=== PATIENT | male | born 1965 | race Caucasian/White ===

== ENCOUNTER 2021-09-23 17:00 | Inpatient (IN) | payer MEDICARE, MEDICAID ==
[~2021-09-23] VITALS: Ht 177.8 cm; Wt 81.2 kg
[2021-09-23] MEDS ORDERED: KETOROLAC 30MG/ML VIAL IV STA (17:37)
[2021-09-23] MEDS ORDERED: ASPIRIN 81MG TABLET PO ONE (17:45)
[2021-09-23] MEDS ORDERED: SODIUM CHLORIDE 0.9% 1,000 ML IV ONE (17:45)
[2021-09-23 17:50] LABS: BASOPHILS % 0.3 % (0.0-2.0); EOSINOPHILS % 1.7 % (0.0-5.0); HEMATOCRIT. 46.5 % (42.0-52.0); HEMOGLOBIN. 16.1 g/dL (14.0-18.0); LYMPHOCYTES % 21.5 % (20.0-50.0); MEAN CORPUSCULAR HEMOGLOBIN 29.8 pg (28.0-32.0); MEAN CORPUSCULAR VOLUME 86.1 fL (80.0-94.0); MEAN PLATELET VOLUME 7.6 fl (7.4-10.4); MONOCYTES % 14.4 % (2.0-8.0); NEUTROPHILS % 62.1 % (40.0-76.0); PLATELET 163 x1000/uL (130-400); RED BLOOD CELL COUNT 5.41 mill/uL (4.7-6.1); RED CELL DISTRIBUTION WIDTH 13.9 % (11.6-14.6)
[2021-09-23 17:55] LABS: CHLORIDE 102 mEq/L (98-107)
[2021-09-23 18:17] LABS: ETHANOL BLOOD < 10 mg/dL
[2021-09-23 18:18] LABS: CARBAMAZEPINE < 0.5 ug/mL (4-12); PHENOBARBITAL < 2.1 ug/mL (15.0-40.0)
[2021-09-23] MEDS ORDERED: DOCUSATE SODIUM 100MG CAPSULE PO PRN (19:00)
[2021-09-23] MEDS ORDERED: MAGNESIUM/ALUMINUM HYDROXIDE/SIMETHICONE 30ML UDC PO PRN (19:00)
[2021-09-23] MEDS ORDERED: HALOPERIDOL LACTATE 5MG/ML VIAL IM PRN (19:00)
[2021-09-23] MEDS ORDERED: NITROGLYCERIN 0.4MG TABLET SL SL PRN (19:00)
[2021-09-23] MEDS ORDERED: ACETAMINOPHEN 325MG TABLET PO PRN ×2 (19:00)
[2021-09-23] MEDS ORDERED: IPRATROPIUM/ALBUTEROL 0.5-3(2.5)MG/3ML NEB NEB PRN (19:00)
[2021-09-23] MEDS ORDERED: CLONIDINE 0.1MG TABLET PO PRN (19:00)
[2021-09-23] MEDS ORDERED: ONDANSETRON HCL 4MG/2ML INJ IV PRN (19:00)
[2021-09-23] MEDS ORDERED: KETOROLAC 15MG/ML VIAL IV PRN (19:00)
[2021-09-23] MEDS ORDERED: GUAIFENESIN 200MG/10ML SUGAR FREE UDC PO PRN (19:00)
[2021-09-23] MEDS ORDERED: ZOLPIDEM TARTRATE 5MG TABLET PO PRN (19:00)
[2021-09-23 20:01] LABS: T4 FREE 1.42 ng/dL (0.76-1.46)
[2021-09-23 20:17] LABS: FOLIC ACID (FOLATE) SERUM 15.3 ng/mL (>5.38)
[2021-09-24] VITALS (7 sets, daily range): BP systolic 101–139; BP diastolic 70–92
[2021-09-24 01:47] LABS: CREATINE KINASE MB FRACTION 2.8 ng/mL (0.5-3.6)
[2021-09-24] MEDS: ENOXAPARIN 40MG/0.4ML SYR SUBCUT SCH ×2 (01:50→17:27)
[2021-09-24] MEDS: METOPROLOL TARTRATE 25MG TABLET PO SCH ×3 (01:51→20:31)
[2021-09-24] MEDS: FAMOTIDINE 20MG TABLET PO SCH ×3 (01:51→20:31)
[2021-09-24] MEDS: VALPROIC ACID 250MG CAPSULE PO SCH ×3 (05:48→20:44)
[2021-09-24 06:15] LABS: BASOPHILS % 0.3 % (0.0-2.0); EOSINOPHILS % 2.7 % (0.0-5.0); HEMOGLOBIN. 15.3 g/dL (14.0-18.0); LYMPHOCYTES % 28.1 % (20.0-50.0); MEAN CORPUSCULAR HEMOGLOBIN 29.7 pg (28.0-32.0); MEAN CORPUSCULAR VOLUME 85.2 fL (80.0-94.0); MEAN PLATELET VOLUME 8.1 fl (7.4-10.4); MONOCYTES % 12.4 % (2.0-8.0); NEUTROPHILS % 56.5 % (40.0-76.0); PLATELET 199 x1000/uL (130-400); RED BLOOD CELL COUNT 5.16 mill/uL (4.7-6.1); RED CELL DISTRIBUTION WIDTH 13.8 % (11.6-14.6)
[2021-09-24 06:33] LABS: CHLORIDE 104 mEq/L (98-107)
[2021-09-24 06:50] LABS: CREATINE KINASE 74 IU/L (39-308); CREATINE KINASE MB FRACTION 2.8 ng/mL (0.5-3.6); PHOSPHORUS 3.4 mg/dL (2.5-4.9)
[2021-09-24] MEDS: ASPIRIN 325MG EC TABLET PO SCH (08:34)
[2021-09-24] MEDS ORDERED: ATOR40TA70 PO (10:38)
[2021-09-24] MEDS ORDERED: DIVA125C2 MT (10:38)
[2021-09-24] MEDS ORDERED: BENZ2TAB7 PO (10:38)
[2021-09-24] MEDS ORDERED: RISP1TAB97 MT (10:38)
[2021-09-24] MEDS: PIPERACILLIN/TAZOBACTAM 3.375 G in DEXTROSE 5% WATER 50 ML IV SCH ×2 (16:00→22:16)
[2021-09-24 20:27] LABS: *AMPHETAMINES SCREEN URINE NEGATIVE (NEGATIVE); *BARBITURATES SCREEN URINE NEGATIVE (NEGATIVE); *BENZODIAZEPINES SCREEN URINE NEGATIVE (NEGATIVE); *COCAINE SCREEN URINE NEGATIVE (NEGATIVE); CANNABINOID URINE SCREEN NEGATIVE (NEGATIVE); METHADONE URINE SCREEN NEGATIVE (NEGATIVE); OPIATES URINE SCREEN NEGATIVE (NEGATIVE); PHENCYCLIDINE URINE SCREEN NEGATIVE (NEGATIVE)
[2021-09-25] VITALS (7 sets, daily range): BP systolic 87–139; BP diastolic 52–89
[2021-09-25] MEDS: VALPROIC ACID 250MG CAPSULE PO SCH ×3 (05:37→21:03)
[2021-09-25] MEDS: PIPERACILLIN/TAZOBACTAM 3.375 G in DEXTROSE 5% WATER 50 ML IV SCH ×3 (05:37→21:08)
[2021-09-25] MEDS: METOPROLOL TARTRATE 25MG TABLET PO SCH ×2 (09:00→21:03)
[2021-09-25] MEDS: FAMOTIDINE 20MG TABLET PO SCH ×2 (09:52→21:03)
[2021-09-25] MEDS: ASPIRIN 325MG EC TABLET PO SCH (09:52)
[2021-09-25] MEDS: ENOXAPARIN 40MG/0.4ML SYR SUBCUT SCH (15:55)
[2021-09-26] VITALS: BP 107/59
[2021-09-26 04:00] VITALS: BP 101/62
[2021-09-26] MEDS: PIPERACILLIN/TAZOBACTAM 3.375 G in DEXTROSE 5% WATER 50 ML IV SCH ×3 (05:23→21:05)
[2021-09-26] MEDS: VALPROIC ACID 250MG CAPSULE PO SCH ×3 (05:24→21:54)
[2021-09-26 08:00] VITALS: BP 108/66
[2021-09-26] MEDS: METOPROLOL TARTRATE 25MG TABLET PO SCH ×2 (08:08→21:54)
[2021-09-26] MEDS: ASPIRIN 325MG EC TABLET PO SCH (08:09)
[2021-09-26] MEDS: FAMOTIDINE 20MG TABLET PO SCH ×2 (08:09→21:54)
[2021-09-26 12:00] VITALS: BP 116/85
[2021-09-26 15:57] VITALS: BP 109/79
[2021-09-26] MEDS: ENOXAPARIN 40MG/0.4ML SYR SUBCUT SCH (16:58)
[2021-09-26 20:00] VITALS: BP 113/68
[2021-09-27] VITALS: BP 128/89
[2021-09-27 04:10] VITALS: BP 119/64
[2021-09-27] MEDS: PIPERACILLIN/TAZOBACTAM 3.375 G in DEXTROSE 5% WATER 50 ML IV SCH ×2 (05:18→14:12)
[2021-09-27] MEDS: VALPROIC ACID 250MG CAPSULE PO SCH ×2 (05:22→13:44)
[2021-09-27 08:11] VITALS: BP 114/79
[2021-09-27] MEDS: FAMOTIDINE 20MG TABLET PO SCH (08:47)
[2021-09-27] MEDS: METOPROLOL TARTRATE 25MG TABLET PO SCH (08:47)
[2021-09-27] MEDS: ASPIRIN 325MG EC TABLET PO SCH (08:47)
[2021-09-27 09:45] VITALS: BP 114/79
[2021-09-27 12:29] VITALS: BP 109/63
[2021-09-27 15:20] VITALS: BP 115/72
[2021-09-27] MEDS: ENOXAPARIN 40MG/0.4ML SYR SUBCUT SCH (15:58)
== END 2021-09-27 19:25 | disposition home or self-care (01) | DRG 206 ==
LOC: ER 17:00 → 8WST 18:42 → SUPCPDRO 18:58 → ENRESERV 19:57
PROVIDERS: ADMIT Internal Medicine; ATTEND Internal Medicine
DX: M94.0 Chondrocostal junction syndrome [Tietze] (principal); E87.1 Hypo-osmolality and hyponatremia; E86.0 Dehydration; F79 Unspecified intellectual disabilities; G40.909 Epilepsy, unspecified, not intractable, without status epilepticus; R62.50 Unspecified lack of expected normal physiological development in childhood; Z20.822 Contact with and (suspected) exposure to COVID-19; K62.89 Other specified diseases of anus and rectum
CPT/HCPCS: 36415; 71045; 74176; 80053; 80061; 80156; 80165; 80184; 80185; 80305; 80320; 82550; 82553; 82607; 82746; 83036; 83540; 83550; 83735; 83880; 84100; 84439; 84443; 84484; 85025; 87426; 93005; 93306; 93970; 99285; J1650; J1885; J2543; J7030; J7060; G0480